=== PATIENT | female | born 1960 | race Caucasian/White ===

== ENCOUNTER 2022-10-24 08:54 | Outpatient (CLI) | payer OTHER, SELFPAY ==
--- NOTE | ~2022-10-24 | US_ITS ---
EXAMINATION: US carotid duplex BI DATE: 10/24/2022 09:38 INDICATION: Family history of cerebrovascular accident TECHNIQUE: Grayscale, color Doppler, and pulsed Doppler images of the cervical carotid arteries were obtained. The degree of vessel stenosis is placed in one of the following categories: normal, <50%, 5 0-69%, >=70% but less than near-occlusion, near-occlusion, or total occlusion. Note that percent sten osis relative to normal distal artery lumen diameter is indirectly measured from velocity measurement s as described by Yonas, et al. Radiology 2003; [id number]:[id number]. COMPARISON: None. FINDINGS: RIGHT: The right common carotid artery (CCA) peak systolic velocity (PSV) is 105.0 cm/s. The right internal carotid artery (ICA) PSV is 67.0 cm/s. The right ICA end-diastolic velocity (EDV) is 30.8 cm/s. The r ight ICA/CCA PSV ratio is 0.6. Grayscale and color Doppler images yield an estimate of less than 50% diameter reduction from plaque in the ICA. The external carotid artery (ECA) PSV is 74.8 cm/s. There is antegrade flow in the right vertebral artery. LEFT: The left CCA PSV is 73.5 cm/s. The left ICA PSV is 64.1 cm/s. The left ICA EDV is 22.8 cm/s. The left ICA/CCA PSV ratio is 0.9. Grayscale and color Doppler images yield an estimate of less than 50% diam eter reduction from plaque in the ICA. The ECA PSV is 64.4 cm/s. There is antegrade flow in the left vertebral artery. IMPRESSION: 1. Less than 50% stenosis in the right internal carotid artery. 2. Less than 50% stenosis in the left internal carotid artery. Reviewed, dictated and finalized at [facility]. Reviewed, dictated and finalized at [facility].
== END 2022-10-24 08:55 | disposition home or self-care (01) ==
PROVIDERS: PCP Internal Medicine Endocrinology, Diabetes & Metabolism; Visit Provider Internal Medicine Endocrinology, Diabetes & Metabolism
DX: N95.1 Menopausal and female climacteric states (principal); Z82.3 Family history of stroke; I65.23 Occlusion and stenosis of bilateral carotid arteries
CPT/HCPCS: 93880